=== PATIENT | male | born 1970 | race Caucasian/White ===

== ENCOUNTER 2018-12-29 02:12 | Emergency (ER) | payer BC ==
[~2018-12-29] VITALS: Ht 188 cm; Wt 74.8 kg
[2018-12-29] MEDS ORDERED: XANAX 0.25 MG0.25 MG PO (02:28)
[2018-12-29] MEDS ORDERED: TRILEPTAL150 MG PO (02:30)
[2018-12-29] MEDS ORDERED: CLONAZEPAM 0.50.5 M1 PO (02:31)
[2018-12-29] MEDS ORDERED: RISPERDAL0.5 MG PO (02:34)
[2018-12-29 03:17] LABS: PLATELET COUNT 207 thou/uL (150-400); WBC 3.9 thou/uL (4.0-11.0)
[2018-12-29 03:19] LABS: ABSOLUTE NEUTROPHILS 2.8 thou/uL (1.4-8.2); BASOPHILS 0.5 % (0.0-2.0); EOSINOPHILS 0.2 % (0.0-3.0); HEMATOCRIT 43.8 % (42.0-52.0); HEMOGLOBIN 15.2 gm/dL (14.0-18.0); LYMPHOCYTES 18.1 % (24.0-44.0); MCHC 34.6 g/dL (28.0-37.0); MCV 95.2 fL (80.0-100.0); MONOCYTES 8.4 % (1.0-8.0); POLYS 72.8 % (36.0-66.0); RDW 12.7 % (10.5-14.5)
[2018-12-29 03:26] LABS: CALCIUM 9.8 mg/dL (8.5-10.1); CREATININE 1.3 mg/dL (0.7-1.3); POTASSIUM 3.8 mmol/L (3.5-5.1)
[2018-12-29 06:30] LABS: AMP/METHAMP Negative (Negative); BARBITURATES Negative (Negative); BENZODIAZEPINES Negative (Negative); COCAINE Negative (Negative); METHADONE Negative (Negative); OPIATES Negative (Negative); PCP Negative (Negative)
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
--- NOTE | 2018-12-29 09:53 | NUR ---
PT RESTED INTERMITTENTLY AND 1:1 MAINTAINED W/Q 15MIN CHECKS UNTIL DISCONTINUED @ 0930 AFTER TALKING WITH MD. PT ATE BREAKFAST. PT CONTACTED MOTHER TO LET HER KNOW HE WAS AT [facility] AND HE WAS BEING RELEASED TO RETURN HOME. AWAITING FOR D/C. COOPERATIVE & COMPLAINT. NO AGGRESSIVE BEHAVIOR. NO SI/HI. NO A/V HALLUCINATIONS.
--- NOTE | 2018-12-29 10:03 | NUR ---
1000 - SALINE LOCK REMOVED. VITALS - 146/90,100, 16- 98% O2 SAT. NO COMPLAINTS OF PAIN. NO ACUTE DISTRESS NOTED. AWAITING AFTERCARE INSTRUCTIONS. MOTHER TO TRANSPORT PT HOME.
[2018-12-29 10:12] VITALS: BP 146/90
[2018-12-29] MEDS ORDERED: TRAZODONE 150150 M1 PO (15:31)
[2018-12-29] MEDS ORDERED: SYNTHROID75 MCG PO (15:31)
[2018-12-29] MEDS ORDERED: FISH OIL 1,001000 M2 PO (15:32)
[2018-12-29] MEDS ORDERED: VITAMIN D3400 UNIT PO (15:32)
[2018-12-29] MEDS ORDERED: SEROQUEL 25 MG25 M1 PO (15:33)
[2018-12-29] MEDS ORDERED: LAMICTAL200 MG PO (15:35)
[2018-12-29] MEDS ORDERED: AMLODIPINE BESY10 MG PO (15:35)
[2018-12-29] MEDS ORDERED: OXCARBAZEPINE300 MG PO (15:36)
== END 2018-12-29 10:19 | disposition home or self-care (01) ==
LOC: ER 02:12
PROVIDERS: Student in an Organized Health Care Education/Training Program
DX: F31.9 Bipolar disorder, unspecified (principal); F31.2 Bipolar disorder, current episode manic severe with psychotic features; E03.9 Hypothyroidism, unspecified

== ENCOUNTER 2018-12-29 11:51 | Emergency (ER) | payer BC ==
[~2018-12-29] VITALS: Ht 188 cm; Wt 90.7 kg
[~2018-12-29 11:51] MED LIST: CLONAZEPAM 0.50.5 M1 PO; RISPERDAL0.5 MG PO; TRILEPTAL150 MG PO; XANAX 0.25 MG0.25 MG PO
[2018-12-29 13:06] LABS: ABSOLUTE NEUTROPHILS 3.2 thou/uL (1.4-8.2); BASOPHILS 0.8 % (0.0-2.0); EOSINOPHILS 0.3 % (0.0-3.0); HEMATOCRIT 42.8 % (42.0-52.0); LYMPHOCYTES 16.7 % (24.0-44.0); MCH 33.5 pg (26.0-34.0); MCHC 35.1 g/dL (28.0-37.0); MCV 95.3 fL (80.0-100.0); MONOCYTES 10.9 % (1.0-8.0); PLATELET COUNT 201 thou/uL (150-400); POLYS 71.3 % (36.0-66.0); RBC 4.49 mil/uL (4.50-6.00); WBC 4.5 thou/uL (4.0-11.0)
[2018-12-29 13:18] LABS: ANION GAP 13 mmol/L (7-16); BUN 17 mg/dL (7-18); CALCIUM 9.8 mg/dL (8.5-10.1); CHLORIDE 103 mmol/L (98-107); CO2 24 mmol/L (21-32); CREATININE 1.2 mg/dL (0.7-1.3); GLUCOSE 112 mg/dL (74-106); POTASSIUM 3.5 mmol/L (3.5-5.1); SODIUM 140 mmol/L (136-145)
[2018-12-29 13:24] LABS: ALBUMIN 4.5 g/dL (3.4-5.0); SALICYLATE < 2.8 mg/dL (2.8-20.0); SGOT 25 U/L (15-37); SGPT 33 U/L (30-65); TOTAL BILIRUBIN 0.4 mg/dL (<0.1-1.0); TOTAL PROTEIN 7.6 g/dL (6.4-8.2)
[2018-12-29 14:36] LABS: URINE BLOOD TRACE (Negative); URINE CLARITY CLEAR; URINE COLOR YELLOW; URINE GLUCOSE-RANDOM* NEGATIVE (Negative); URINE KETONES 3+ (Negative); URINE LEUKOCYTES-REFLEX NEGATIVE (Negative); URINE NITRITE-REFLEX NEGATIVE (Negative); URINE PROTEIN (DIPSTICK) TRACE (Negative); URINE SPECIFIC GRAVITY >= 1.030 (1.005-1.035); URINE UROBILINOGEN 0.2 E.U./dl (0.2-1.0)
[2018-12-29 14:40] LABS: ICTOTEST (BILI CONFIRMATORY) Negative (Negative); URINE BILIRUBIN NEGATIVE (Negative)
[2018-12-29 14:46] LABS: AMP/METHAMP Negative (Negative); BARBITURATES Negative (Negative); BENZODIAZEPINES Negative (Negative); COCAINE Negative (Negative); METHADONE Negative (Negative); OPIATES Negative (Negative); PCP Negative (Negative)
[2018-12-29] MEDS ORDERED: TRAZODONE 150150 M1 PO (15:31)
[2018-12-29] MEDS ORDERED: SYNTHROID75 MCG PO (15:31)
[2018-12-29] MEDS ORDERED: FISH OIL 1,001000 M2 PO (15:32)
[2018-12-29] MEDS ORDERED: VITAMIN D3400 UNIT PO (15:32)
[2018-12-29] MEDS ORDERED: SEROQUEL 25 MG25 M1 PO (15:33)
[2018-12-29] MEDS ORDERED: LAMICTAL200 MG PO (15:35)
[2018-12-29] MEDS ORDERED: AMLODIPINE BESY10 MG PO (15:35)
[2018-12-29] MEDS ORDERED: OXCARBAZEPINE300 MG PO (15:36)
[2018-12-30 17:00] VITALS: BP 127/86
== END 2018-12-30 17:02 ==
LOC: ER 11:51
PROVIDERS: Emergency Medicine
DX: F31.9 Bipolar disorder, unspecified (principal); R45.851 Suicidal ideations; F41.9 Anxiety disorder, unspecified; E03.9 Hypothyroidism, unspecified; F20.9 Schizophrenia, unspecified